=== PATIENT | female | born 1965 | race Caucasian/White ===

== ENCOUNTER 2017-04-18 14:31 | Emergency (ER) | payer MEDICARE, OTHER ==
[2017-04-18 14:48] VITALS: BP 126/78
--- NOTE | 2017-04-18 15:21 | ERNOTE ---
Back Pain ER HPI Time Seen by Provider: 04/18/17 15:13 Source: patient Exam Limitations: no limitations Immunizations: IMMUNIZATION HX Immunizations Up to Date Yes History of Influenza Vaccine Yes Hx Pneumococcal Vaccination Yes Allergies/Adverse Reactions: Allergies oxycodone Adverse Reaction (Severe, Verified 04/18/17 14:49) Nausea tramadol Adverse Reaction (Severe, Verified 04/18/17 14:49) Nausea Home Medications: HOME MEDICATIONS Dextroamphetamine/Amphetamine [Adderall Xr 30 mg Capsule] 30 mg PO DAILY [Last Taken 02/19/16] HYDROcodone/ACETAMINOPHEN [[place] 5-325] 1 tab PO Q4H PRN #20 tab 03/21/16 [Last Taken Unknown] Pilocarpine HCl [Sal[place]] 5 mg PO DAILY 03/21/16 [Last Taken Unknown] Naproxen [Naprosyn] 500 mg PO BID PRN #20 tablet 04/18/17 [Last Taken Unknown] Narrative: Patient presents to the emergency room for mid back pain which began after she helped her friend move several heavy objects yesterday. This patient does have a history of back pain in the past for which she gets [place] was from Dr. Becker. He denies any fevers or chills or dysuria and the pain has been constant all day. Review of Systems - Review of Systems Constitutional: Present: no symptoms reported EYE: Present: no symptoms reported ENT: Present: no symptoms reported Respiratory: Present: no symptoms reported Cardiology: Present: no symptoms reported Gastrointestinal/Abdominal: Present: no symptoms reported Musculoskeletal: Present: other - patient has significant amount of muscle spasm in the lumbar region bilaterally in the paravertebral muscle groups. There are no shingles lesions or any other kind of deformity or redness or signs of infection in the corresponding region. Although walks she is able to sit and bend at the torso however she does have severe pain right just touch her back. - Patient's Past Medical History Patient History - Medical: No pertinent hx, ADHD Patient History - Cardiac/Respiratory: No pertinent hx Patient History - Cancer: Throat, Chemotherapy history, Radiation Therapy Patient History - Surgical Procedures: Appendectomy, Tubal Ligation Patient History - Other: None LMP (females 10-50): year ago - Family History Mother Family History - Medical: No pertinent hx Father Family History - Medical: No pertinent hx - Social History Living Situations: home Abuse History: No History of abuse Psych History: No pertinent hx Smoking Status: Never smoker Alcohol Use: none Drug Use: none - Immunizations Immunizations Up to Date: Yes Hx Pneumococcal Vaccination: Yes History of Influenza Vaccine: Yes Physical Exam - Physical Exam General Appearance: Present: wd/wn, alert, no apparent distress Ears, Nose, Throat: Present: normal ENT inspection Neck: Present: normal inspection, nontender Respiratory: Present: no respiratory distress, normal breath sounds, no accessory muscle use, chest nontender, lungs clear Cardiovascular/Chest: Present: regular rate, rhythm, no murmur, normal peripheral pulses Back Exam: Present: normal inspection, other - patient has severe tenderness upon palpation of the paravertebral muscle groups bilaterally in the thoracic and lumbar region of the spine no vesicular lesions or redness noted does appear to have an exaggerated lordotic spine Extremity Exam: Present: normal inspection Neurological Exam: Present: alert, oriented ED Progress - Vital Signs Patient's Vital Signs:: I have reviewed the patient's vital signs. Vital Signs: Vital Signs 04/18/17 14:43 Temperature 37.2 C Pulse Rate 87 Respiratory 20 Rate Blood Pressure 126/78 O2 Sat by Pulse 98 Oximetry - Progress/Reassessment Chief Complaint: Back Pain Plan - Plan Plan: Patient appears to have muscle spasm of the thoracic and lumbar spine after having helped a friend move yesterday. She will be treated with Naprosyn 500 mg twice a day when necessary pain Departure Clinical Impression: Muscle spasm - Departure Disposition: Home self-care Condition: Good Instructions: Mid-Back Strain With Rehab[facility] Referrals: Dania Becker MD [Primary Care Provider] - Prescriptions: Naproxen [Naprosyn] 500 mg PO BID PRN #20 tablet PRN Reason: Pain
== END 2017-04-18 15:27 | disposition home or self-care (01) ==
LOC: ER 14:31
DX: M62.830 Muscle spasm of back (principal); Z85.819 Personal history of malignant neoplasm of unspecified site of lip, oral cavity, and pharynx; Z92.21 Personal history of antineoplastic chemotherapy; Z92.3 Personal history of irradiation; F90.9 Attention-deficit hyperactivity disorder, unspecified type; X50.0XXA Overexertion from strenuous movement or load, initial encounter

== ENCOUNTER 2019-07-15 12:53 | Observation (INO) ==
--- NOTE | 2019-07-15 13:15 | ERNOTE ---
Back Pain ER HPI Date of Service: 07/15/19 Time Seen by Provider: 07/15/19 13:20 Source: patient Exam Limitations: no limitations Immunizations: IMMUNIZATION HX Immunizations Up to Date Yes History of Influenza Vaccine No Hx Pneumococcal Vaccination No Allergies/Adverse Reactions: Allergies tramadol Adverse Reaction (Mild, Verified 07/15/19 13:04) Nausea Home Medications: HOME MEDICATIONS esomeprazole magnesium 40 mg capsule,delayed release 40 mg PO DAILY #90 cap 01/15/19 [Last Taken Unknown] mupirocin 2 % topical cream 1 applic TP TID #15 g 02/15/19 [Last Taken Unknown] Mupirocin [Bactroban] 1 appl TOPICAL BID #1 tube 06/18/19 [Last Taken Unknown] Sulfamethoxazole/Trimethoprim [Bactrim Ds] 1 tab PO BID #20 tab 06/19/19 [Last Taken Unknown] dextroamphetamine-amphetamine 15 mg tablet 15 mg PO BID #60 tab 06/25/19 [Last Taken Unknown] Narrative: Patient is a 53 years old that works at [employer] at night and on night she was lifting a box of [id number] and heard a sound into her left side with stabbing pain, which moves side shortly after. Pain has been present since and had continued to worsen. Patient reports pain in both side, worsened with movement, and not helped by NSAID. Patient reports taking ibuprofen 6 times since Monday morning, and she reports taking 1 to 2 tablets eachtime. Patient reports dysuria, and increase frequency. she denies fever and mid-line pain. Timing: Reports: constant Quality/Severity: Reports: moderate Location of pain: Reports: mid back, lower back Activities at Onset: Reports: other - at work lifting a box Recent Injury?: Reports: no Possible Precipitating Factor: Reports: lifting, none - UTI Modifying Factors - (Improves): Reports: nothing Modifying Factors - (Worsens): Reports: movement to right, movement to left, movement flexion Associated Symptoms: Reports: problems urinating - dysuria and increase frequency Review of Systems - Review of Systems Constitutional: Present: no symptoms reported EYE: Present: no symptoms reported ENT: Present: no symptoms reported, other - chronic dysarthria Respiratory: Present: no symptoms reported, other - pain on left side with deep breath Cardiology: Present: no symptoms reported Gastrointestinal/Abdominal: Present: no symptoms reported Genitourinary: Present: frequency, dysuria Musculoskeletal: Present: back pain - bilateral back pain at level of CVA, other - CVA tenderness worse on the right Skin: Present: no symptoms reported Neurological: Present: no symptoms reported Endocrine: Present: no symptoms reported Hematologic/Lymphatic: Present: no symptoms reported Psych: Present: no symptoms reported All Other Systems: All systems neg except as marked Medical History (Updated 07/15/19 @ 20:14 by Jennifer Hogan MD) Attention deficit disorder Onset Date: ~2012 History of MRSA infection Onset Date: ~2012 left axillary History of squamous cell carcinoma Onset Date: Unknown left side of neck/underwent chemo and radiation Surgical History: Surgical History (Updated 06/21/18 @ 16:09 by Carrie Willard CMA) History of incision and drainage Onset Date: ~2012 left axillary abscess History of left oophorectomy Onset Date: ~2003 History of tubal ligation Onset Date: ~2003 Hx of appendectomy Onset Date: Unknown Family History: Family History (Updated 06/21/18 @ 16:10 by Carrie Willard CMA) Father Alive and well Mother Alive and well Social History: (Last Reviewed 07/15/19 @ 13:03 by Carola Mckinney RN) Social History: Marital status: number of children: 1 Service: No Tobacco: Smoking Status: Never smoker Alcohol: alcohol intake: current alcohol intake frequency: a few times a month Substance Use: substance use type: former substance user, IV drugs Dietary Habits: caffeine: No Physical Exam - Physical Exam General Appearance: Present: wd/wn, moderate distress Head Exam: Present: normal inspection Eye Exam: Normal inspection: bilateral, PERRL: bilateral Ears, Nose, Throat: Present: normal ENT inspection Neck: Present: normal inspection Respiratory: Present: no respiratory distress, normal breath sounds, decreased breath sounds - left lower lobe Cardiovascular/Chest: Present: regular rate, rhythm Gastrointestinal/Abdominal: Present: normal bowel sounds Back Exam: Present: CVA tenderness (R), CVA tenderness (L). Absent: vertebral tenderness Extremity Exam: Present: normal inspection, non-tender, normal range of motion, no edema Neurological Exam: Present: alert, oriented, normal mood/affect, no motor/sensory deficits Skin Exam: Present: normal color Lymphatic Exam: Present: no adenopathy Progress - Results and Orders Patient's Lab Results:: I have reviewed the patient's lab results. - Vital Signs Patient's Vital Signs:: I have reviewed the patient's vital signs. Vital Signs: Vital Signs 07/15/19 12:59 Temperature 36.3 C Pulse Rate 95 Respiratory Rate 18 Blood Pressure 117/85 O2 Sat by Pulse Oximetry 100 - CT/Ultrasound CT/Ultrasound Narrative: X-RAY REPORT ~[id number] CT/CT Abdomen/Pelvis W/O~ Exam Date: 07/15/2019 14:23 Ordering Physician: Jennifer Hogan MD HISTORY: stone protocol . Additional history from technologist: right flank pain started 2 days ago, left side pain started yesterday TECHNIQUE: Multiple noncontrast axial CT images of the abdomen and pelvis obtained from the top of the diaphragm to the level of the pubic symphysis according to our renal stone CT protocol. Coronal reconstructions were also submitted. Dose reduction techniques using the adjustment of the mA and/or kV according to patient size and/or use of AEC or iterative reconstruction were used in the acquisition of this exam. COMPARISON: Patient has no previous abdominal CT available for comparisons. Chest CT from 11/01/2011 available for comparisons of the lower chest/upper abdomen. FINDINGS: CT Abdomen/Pelvis W/O ABDOMEN: Right kidney: No obvious mass. No discrete intrarenal calcification is identified although there is signs of medullary nephrocalcinosis. No hydronephrosis. No significant perinephric stranding. No evidence for ureteral stone or dilation. Left kidney: No obvious mass. Likewise, no discrete intrarenal calcification is identified although there is signs of medullary nephrocalcinosis. No hydronephrosis. No significant perinephric stranding. No evidence for ureteral stone or dilation. Lung bases: There is a peripheral consolidation in the inferior segment of the lingula, partially visualized on these images. Liver: Series 3 image 17 demonstrates a well-defined low-density lesion, measuring up to 1.4 cm in greatest dimension. On the previous chest CT, the patient had a similar finding although smaller. This is probably a small peripheral hepatic cyst and benign cysts can grow over time but consider ultrasound evaluation to be more definitive which can be performed on a routine basis. Gallbladder: Unremarkable. Pancreas: Unremarkable. Spleen: Unremarkable. Adrenal glands: Unremarkable. Aorta: The aorta is normal in caliber with no evidence for aneurysm. Largest transaxial diameter of the infrarenal segment is 1.7 cm. Retroperitoneum: Unremarkable. Stomach: Unremarkable. Small bowel: Unremarkable. Large bowel: Diverticular outpouchings of the colon noted, predominantly affecting the descending and sigmoid colonic segments, without definite signs of acute inflammation or bowel wall edema/thickening. There is stool retention within the more proximal segments of the colon especially at the cecum/ascending colon suggestive of potential constipation. Appendix is surgically absent. Abdominal wall: There is a small fat-containing umbilical hernia without evidence for bowel herniation. No definable intraperitoneal free air noted. PELVIS: Bladder: No bladder calcifications or abnormal air. No free fluid or fluid collection. No pelvic mass or lymphadenopathy. Patient has bilateral tubal ligation clips. Bones: Appears intact. Multilevel degenerative changes of the thoracolumbar spine noted. IMPRESSION: * Bilateral medullary nephrocalcinosis noted. Differential diagnosis includes hypercalcemic states such as hyperparathyroidism, versus medullary sponge kidney versus renal tubular acidosis. Clinical correlation is advised. * There is no evidence for obstructive uropathy or definable intrarenal or uret eral calcification. * There is a partially visualized pulmonary opacity at the inferior segment of the lingula, which could represent pneumonia versus malignancy. Clinical correlation is advised. Consider additional imaging of the chest (e.g. chest CT with contrast, PET/CT, which can be performed nonemergently). Recommend follow- up imaging (chest CT in 3 months) to document resolution as potential malignancy cannot be entirely excluded. * Slightly enlarged low-density lesion of the liver as discussed above. This is most likely a benign cyst but consider nonemergent liver ultrasound. * Additional comments are as above. The examination is overall suboptimal due to noncontrast CT technique, specifically in regards to neoplastic or vascular processes. Potential parenchymal tumor, or acute vascular processes such as aortic/arterial dissection or thrombosis of a vascular structure cannot be entirely excluded by noncontrast exam. Electronically signed by Janice Black M.D.. Janice Black MD Dict: 07/15/19 1504 Typed: 07/15/19 1504/ X-RAY REPORT ~[id number] CT/CTA Chest~ Exam Date: 07/15/2019 18:08 Ordering Physician: Jennifer Hogan MD HISTORY: pain in chest and back Additional history from technologist: Patient came in with sharp left flank pain today that radiates up into chest. N/V. History of throat cancer with chemo and radiation. TECHNIQUE: Multiple thin-section contrast-enhanced axial CT images of the chest were obtained after rapid infusion of intravenous contrast material, according to pulmonary angiography protocol. Coronal maximal intensity projection (MIP) images were also submitted for interpretation. Dose reduction techniques using the adjustment of the mA and/or kV according to patient size and/or use of AEC or iterative reconstruction were used in the acquisition of this exam. COMPARISONS: Patient has a prior contrast-enhanced chest CT from 11/01/2011. FINDINGS: CTA Chest: Pulmonary Arteries: Diagnostic Quality (for pulmonary arteries): Opacification of the pulmonary arterial branches is adequate. The breath hold is adequate. There is streak artifact from contrast material within the superior vena cava, which affects the adjacent pulmonary arteries. Series 6 image 53 demonstrates a nonocclusive central filling defect within the left lower lobe common basal segmental branch of the pulmonary artery suggestive of a nonocclusive acute PE. No large central saddle embolus. No definite axial CT image findings of right heart strain. Aorta: Opacification of the thoracic aorta is suboptimal for angiographic evaluation but no definite focal finding is seen. Multiple artifacts related to cardiac motion and streak artifact from contrast in the adjacent superior vena cava noted. Mediastinum: No mediastinal mass or lymphadenopathy noted. Calcified mediastinal lymph nodes noted. Heart: No significant pericardial effusion noted. Lung Parenchyma: Series 8 image 87 and series 10 image 31 best demonstrates a peripheral consolidation of the inferior segment of the lingula measuring up to 2.4 x 1.5 cm in the axial images, measuring up to 3.7 cm in length. Patient has biapical fibrotic changes which could be related to prior radiation treatment given a fairly delineated appearance of the pattern of involvement, involving specifically the medial aspect of the lung apices. Central Airways: The trachea and bronchi grossly patent. Pleural Spaces: No pneumothorax or pleural effusions present. Bones: Bones are grossly intact. Chest Wall/Axillae: Anterior chest wall is grossly unremarkable. Axillary regions are also grossly normal. Upper Abdomen: Please see the recent CT examination the abdomen and pelvis report for additional details. IMPRESSION: 1. Positive for acute pulmonary thromboembolism. Nonocclusive filling defect/PE in the left lower lobe common basal segmental branch. 2. Suboptimal opacification of the thoracic aorta for angiographic evaluation without obvious acute findings. 3. Peripheral consolidation of the inferior segment of the lingula. In the setting of PE, this could represent pulmonary hemorrhage versus pulmonary infarct. Other considerations also include pneumonia. Neoplasm should also be considered. Recommend follow-up chest CT in 3 months. PET/CT can also be considered given clinical history of known throat cancer. 4. Additional comments are as above. Above critical result (PULMONARY EMBOLISM) communicated to Jennifer Hogan MD via telephone on 07/15/2019 7:54 PM. Electronically signed by Janice Black M.D.. Janice Black MD Dict: 07/15/191941 Typed: 07/15/191941/ - Progress/Reassessment Chief Complaint: Back Pain Plan - Plan Plan: Patient with bilateral severe back pain since last , dysuria, increased frequency. CT abdomen and pelvis without contrast for stone protocol revealed bilateral nephrocalcinosis which does not explain her bilateral severe pain. Patient found to have a UTI and given a dose of ceftriaxone IV. Patient pain is intractable and required hydromorphone to control it, she also of nausea and vomiting requiring IV medication. Due to her continuous pain I ordered a CT chest, which revealed a left lower lobe pulmonary emboli, with peripheral consolidation of the inferior segment of the lingula, iIn the setting of PE,with represent pulmonary hemorrhage versus pulmonary infarct versus pneumonia. Patient was given a milligram per kilogram of Lovenox, 5 mg of Coumadin. Overall, 500 mg of azithromycin peripheral. Case was discussed with Dr. Umanzor who accepted admission to [facility] as inpatient for pulmonary emboli, UTI, pneumonia, nausea and vomiting, and intractable pain. Departure Clinical Impression: UTI (urinary tract infection), Pulmonary emboli, Pneumonia, Nausea & vomiting, Intractable pain - Departure Disposition: Still a patient Condition: Serious Referrals: Dania Becker MD [Primary Care Provider] -
[2019-07-15] MEDS ORDERED: KETOROLAC TROMETHAMINE 30 MG/ML VIAL IM ONE (13:41)
[2019-07-15 13:58] LABS: Urine Bilirubin Negative (NEGATIVE); Urine Blood Negative /ul (NEGATIVE); Urine Ketone Negative (NEGATIVE); Urine Nitrite Negative (NEGATIVE); Urine Protein Negative (NEGATIVE); Urine Specific Gravity 1.025 SP.GR. (1.005-1.010); Urine Urobilinogen Normal (NORMAL); Urine pH 5.5 pH (5.0-7.0)
[2019-07-15 14:09] LABS: Urine Appearance Slightly Cloudy (CLEAR); Urine Bacteria 1+; Urine Color Yellow; Urine RBC 0-5 /hpf (0-5)
[2019-07-15] MEDS ORDERED: NORMAL SALINE 1,000 ML IV PRN (14:18)
[2019-07-15] MEDS ORDERED: MORPHINE SULFATE 4 MG/ML SYRG IV ONE (14:18)
[2019-07-15 14:42] LABS: Hematocrit 33.4 % (37.0-47.0); Hemoglobin 10.7 gm/dL (12.5-16.0); Mean Cell Volume 84.6 fl (78-100); Mean Corpuscular Hemoglobin 27.1 pg (27-31); Mean Platelet Volume 8.4 fl (8-12.5); Neutrophil # 4.4 K/mm3 (1.3-6.0); Neutrophil % 68.8 % (42-75.0); Platelet Count 300 K/mm3 (150-450); Red Blood Count 3.95 M/mm3 (4.2-5.4); Red Cell Distribution Width 13.2 % (11.5-14.0); White Blood Count 6.4 K/mm3 (4.0-10.5)
[2019-07-15 14:54] LABS: Albumin * 3.1 gm/dl (3.4-5.0); Anion Gap 10.7 mmol/L (6.8-13.8); BUN/Creatinine Ratio 11.8 (9.0-21.6); Bilirubin, Total 0.2 mg/dL (0.0-1.1); Ca. Corrected For Albumin 9.6 mg/dL (8.4-10.2); Calcium * 9.2 mg/dL (7.9-10.9); Carbon Dioxide 29.4 mmol/L (24-32.6); Potassium 4.1 mmol/L (3.4-4.6); Total Protein 7.5 gm/dL (6.2-8.2)
[2019-07-15] MEDS ORDERED: HYDROmorphone HCL 1 MG/ML DISP.SYRIN IV ONE ×2 (14:56→18:14)
[2019-07-15] MEDS ORDERED: ONDANSETRON HCL/PF 2 MG/ML VIAL IV ONE (18:14)
[2019-07-15] MEDS ORDERED: cefTRIAXone SODIUM 1,000 MG/100 ML BAG IV ONE (18:16)
[2019-07-15] MEDS ORDERED: PROCHLORPERAZINE EDISYLATE 5 MG/ML VIAL IV ONE (19:07)
[2019-07-15] MEDS ORDERED: PROCHLORPERAZINE EDISYLATE 5 MG/ML VIAL ONE (19:08)
[2019-07-15] MEDS ORDERED: ENOXAPARIN SODIUM 30 MG/0.3 ML SYRG SC ONE (20:07)
[2019-07-15] MEDS ORDERED: AZITHROMYCIN 250 MG TABLET PO ONE (20:10)
[2019-07-15] MEDS ORDERED: WARFARIN SODIUM 5 MG TABLET PO ONE (20:24)
[2019-07-15 20:57] LABS: Prothrombin Time (Patient) 10.1 Seconds (9.1-10.7)
[2019-07-15 20:58] LABS: INR 1.02 INR (0.92-1.08); Partial Thrombolplastin Time 28.2 Seconds (24-32)
[2019-07-15] MEDS ORDERED: WARFARIN SODIUM 5 MG TABLET ONE (21:33)
[2019-07-15] MEDS ORDERED: AZITHROMYCIN 250 MG TABLET ONE (21:33)
[2019-07-15] MEDS ORDERED: ENOXAPARIN SODIUM 100 MG/ML SYRG SC ONE (21:33)
[2019-07-15] MEDS ORDERED: AZITHROMYCIN 500 MG in DEXTROSE 5 % IN WATER 250 ML IV ONE ×2 (22:20)
[2019-07-15] MEDS ORDERED: oxyCODONE HCL/ACETAMINOPHEN 1 TAB TABLET PO PRN (23:52)
[2019-07-15] MEDS ORDERED: ONDANSETRON HCL/PF 2 MG/ML VIAL IV PRN (23:54)
[2019-07-16] MEDS ORDERED: PANTOPRAZOLE SODIUM 40 MG TABLET.EC PO SCH (07:00)
[2019-07-16] MEDS ORDERED: ENOXAPARIN SODIUM 60 MG/0.6 ML SYRG SC SCH (08:00)
--- NOTE | 2019-07-16 08:22 | HPDIS ---
Chief Complaint - Chief Complaint Date of Service: 07/16/19 Time of Service: 08:22 Chief Complaint: Side pain, shortness of breath, nausea/vomiting History of Present Illness: Faye is a 53 yo female with history of throat cancer reportedly in remission. She was working at [employer] when she had sudden stabbing left side chest and flank pain. Pain continued in severity that it caused nausea and vomiting. She felt short of breath. She was seen in the [facility] ER and evaluated with Abdomen CT which showed possible pnuemonia in lung. Chest CT was performed which showed pulmonary embolism and possible hemorrhage vs infarct in the left lingula. She denies prior blood clot, smoking, decreased mobility, family history of blood clots, or recent travel. She does have history of throat cancer in remission. She was having severe pain and nausea but pain has now resolved and she is feeling better. Medical History (Updated 07/16/19 @ 08:22 by Julio Umanzor DO) Attention deficit disorder Onset Date: ~2012 History of MRSA infection Onset Date: ~2012 left axillary History of squamous cell carcinoma Onset Date: Unknown left side of neck/underwent chemo and radiation Surgical History: Surgical History (Updated 07/16/19 @ 08:22 by Julio Umanzor DO) History of incision and drainage Onset Date: ~2012 left axillary abscess History of left oophorectomy Onset Date: ~2003 History of tubal ligation Onset Date: ~2003 Hx of appendectomy Onset Date: Unknown Family History: Family History (Updated 06/21/18 @ 16:10 by Carrie Willard CMA) Father Alive and well Mother Alive and well Social History: (Last Reviewed 07/15/19 @ 21:23 by Carl Rojas RN) Social History: Marital status: number of children: 1 Service: No Tobacco: Smoking Status: Never smoker Alcohol: alcohol intake: current alcohol intake frequency: a few times a month Substance Use: substance use type: former substance user, IV drugs Dietary Habits: caffeine: No Review Of Systems (GEN) - Review of Systems Generalized/Overall Review: Absent: Weakness, Chills, Fever Respiratory: Present: Shortness of Breath. Absent: Cough Cardiac: Present: Chest Pain. Absent: Palpitations, Syncope Abdominal: Present: Nausea, Vomiting. Absent: Abdominal Pain Genitourinary: Present: No Symptoms Reported Neurological: Present: No Symptoms Reported Skin: Present: No Symptoms Reported Immunizations: IMMUNIZATION HX Immunizations Up to Date Yes History of Influenza Vaccine No Hx Pneumococcal Vaccination No Allergies/Adverse Reactions: Allergies Allergy/AdvReac Type Severity Reaction Status Date / Time tramadol AdvReac Mild Nausea Verified 07/15/19 21:23 Home Medications: HOME MEDICATIONS esomeprazole magnesium 40 mg capsule,delayed release 40 mg PO DAILY #90 cap 01/15/19 [Last Taken Unknown] dextroamphetamine-amphetamine 15 mg tablet 15 mg PO BID #60 tab 06/25/19 [Last Taken Unknown] Apixaban [Eliquis] 5 mg PO BID #60 tab 07/16/19 [Last Taken Unknown] Apixaban [Eliquis] 10 mg PO BID #28 tab 07/16/19 [Last Taken Unknown] HYDROcodone/ACETAMINOPHEN [Hydrocodon-Acetaminophen 5-325] 1 each PO Q6H PRN #60 tablet 07/16/19 [Last Taken Unknown] Exam - Exam Vital Signs: Vital Signs - Last Taken Temp 36.8 C 07/16/19 07:29 Pulse 74 07/16/19 07:29 Resp 12 07/16/19 07:29 BP 110/77 07/16/19 07:29 Pulse Ox 97 07/16/19 07:29 Constitutional: Present: Alert, Oriented x3, Cooperative ENT Exam: Present: hearing grossly normal Eye Exam: bilateral eye: normal inspection Respiratory: Present: lungs clear, normal breath sounds Cardiovascular/Chest: Present: no murmur, tachycardia Peripheral Pulses: radial (R): 2+, radial (L): 2+ Abdomen: Present: Normal bowel sounds, soft, nontender, nondistended Skin Exam: Present: normal color, warm/dry, no cyanosis Diagnostic Studies: Abnormal Lab Results 07/15/19 07/15/19 07/15/19 Range/Units 13:46 14:34 14:34 RBC 3.95 L (4.2-5.4) M/mm3 Hgb 10.7 L (12.5-16.0) gm/dL Hct 33.4 L (37.0-47.0) % Lymphocytes % 18.6 L (20-51) % Eosinophils % 3.8 H (0.0-3.0) % Lymphocytes # 1.18 L (1.5-3.5) k/mm3 ALT 13 L (19-67) U/L Albumin 3.1 L (3.4-5.0) gm/dl Ur Leukocyte Esterase 500 H (NEGATIVE) /ul Urine WBC 10-25 H (0-5) /hpf Ur Epithelial Cells >25 H (0-5) /hpf Urine Bacteria 1+ H (NONE) Microbiology 07/15/19 13:46 Urine Culture - Preliminary Urine,Clean Catch No Growth Laboratory Results WBC 6.4 K/mm3 (4.0-10.5) 07/15/19 14:34 RBC 3.95 M/mm3 (4.2-5.4) L 07/15/19 14:34 Hgb 10.7 gm/dL (12.5-16.0) L 07/15/19 14:34 Hct 33.4 % (37.0-47.0) L 07/15/19 14:34 MCV 84.6 fl (78-100) 07/15/19 14:34 MCH 27.1 pg (27-31) 07/15/19 14:34 MCHC 32.0 g/dl (32-36) 07/15/19 14:34 RDW 13.2 % (11.5-14.0) 07/15/19 14:34 Plt Count 300 K/mm3 (150-450) 07/15/19 14:34 MPV 8.4 fl (8-12.5) 07/15/19 14:34 Immature Gran % (Auto) 0.30 % (0.001-0.429) 07/15/19 14:34 Immature Gran # (Auto) 0.02 K/mm3 (0.000-0.0310) 07/15/19 14:34 68.8 % (42-75.0) 07/15/19 14:34 18.6 % (20-51) L 07/15/19 14:34 8.3 % (0.0-9) 07/15/19 14:34 3.8 % (0.0-3.0) H 07/15/19 14:34 0.2 % (0.0-1.0) 07/15/19 14:34 Nucleated RBC % 0.0 k/mm3 (0-1) 07/15/19 14:34 4.4 K/mm3 (1.3-6.0) 07/15/19 14:34 1.18 k/mm3 (1.5-3.5) L 07/15/19 14:34 0.5 k/mm3 (0.0-1.0) 07/15/19 14:34 0.2 k/mm3 (0.0-0.7) 07/15/19 14:34 Absolute Basophils 0.0 k/mm3 (0.0-0.1) 07/15/19 14:34 PT 10.1 Seconds (9.1-10.7) 07/15/19 20:45 INR (Anticoag Therapy) 1.02 INR (0.92-1.08) 07/15/19 20:45 PTT ([place]) 28.2 Seconds (24-32) 07/15/19 20:45 Sodium 140 mmol/L (132-142) 07/15/19 14:34 140 mmol/L (130-142) 07/15/19 14:34 Potassium 4.1 mmol/L (3.4-4.6) 07/15/19 14:34 Chloride 104 mmol/L (97-106) 07/15/19 14:34 Carbon Dioxide 29.4 mmol/L (24-32.6) 07/15/19 14:34 10.7 mmol/L (6.8-13.8) 07/15/19 14:34 BUN 8 mg/dL (3-23) D 07/15/19 14:34 0.68 mg/dL (0.4-1.4) 07/15/19 14:34 Est GFR (Non-Af Amer) 97 mL/min (60-130) 07/15/19 14:34 11.8 (9.0-21.6) 07/15/19 14:34 90 mg/dL (70-110) 07/15/19 14:34 1.0 mmol/L (0.4-2.0) 07/15/19 14:34 Calcium 9.2 mg/dL (7.9-10.9) 07/15/19 14:34 Calcium Adj for Albumin 9.6 mg/dL (8.4-10.2) 07/15/19 14:34 0.2 mg/dL (0.0-1.1) 07/15/19 14:34 AST 14 U/L (0-48) 07/15/19 14:34 ALT 13 U/L (19-67) L 07/15/19 14:34 100 U/L (50-170) 07/15/19 14:34 7.5 gm/dL (6.2-8.2) 07/15/19 14:34 3.1 gm/dl (3.4-5.0) L 07/15/19 14:34 Yellow 07/15/19 13:46 Slightly cloudy (CLEAR) 07/15/19 13:46 5.5 pH (5.0-7.0) 07/15/19 13:46 Ur Specific [place] 1.025 SP.GR. (1.005-1.010) 07/15/19 13:46 Negative mg/dL (NEGATIVE) 07/15/19 13:46 Negative mg/dL (NEGATIVE) 07/15/19 13:46 Negative mg/dL (NEGATIVE) 07/15/19 13:46 Negative /ul (NEGATIVE) 07/15/19 13:46 Negative (NEGATIVE) 07/15/19 13:46 Negative mg/dl (NEGATIVE) 07/15/19 13:46 Normal EU/dl (NORMAL) 07/15/19 13:46 Ur Leukocyte Esterase 500 /ul (NEGATIVE) H 07/15/19 13:46 0-5 /hpf (0-5) 07/15/19 13:46 10-25 /hpf (0-5) H 07/15/19 13:46 Ur Epithelial Cells >25 /hpf (0-5) H 07/15/19 13:46 1+ (NONE) H 07/15/19 13:46 Culture to follow 07/15/19 13:46 Assessment/Plan - Narrative Narrative: Faye is a 53 yo female with pulmonary embolism in the left lower lobe common basal segmental branch. CT also suggest possible hemorrhage vs infarct. In the ER patient had severe pain and intractable nausea and vomiting due to the pain but this has since resolved overnight. This is a first time episode of VTE and will need 6 months of treatment. She has been medically stable overnight and does not require oxygen. She will be discharged to home. She was started on Lovenox but after discussing with Faye she does not want to do monthly blood draws as she is scared of needles. She elects for eliquis. Will start this treatment as outpatient. - Assessment/Plan (1) Pulmonary emboli Problem: Acute Qualifiers: Pulmonary embolism type: other Chronicity: acute Acute cor pulmonale presence: without acute cor pulmonale Qualified Code(s): I26.99 - Other pulmonary embolism without acute cor pulmonale (2) Nausea & vomiting Problem: Acute Qualifiers: Vomiting type: unspecified (1) Pulmonary emboli Problem: Acute (2) Nausea & vomiting Problem: Acute Date of Discharge:: 07/16/19 Description of Stay: Faye was admitted for pulmonary embolism in observation due to severe pain and intractable nausea and vomiting. These have resolved overnight. She has not required oxygen and vitals are normal. She was started on weight based lovenox 1mg/kg BID. I discussed anticoagulation with her and she elects for eliquis. I recommend treating for 6 months and then considering stopping vs life long therapy. Her only risk factor for VTE is her history of throat cancer. She will be treated with Eliquis 10mg BID x 7 days, then 5mg BID for 6 months. She was initially given antibiotics in the ER for potential pneumonia. I believe her chest findings on imaging are related to her pulmonary embolism as hemorrhage vs infarct. She has no symptoms of pneumonia as she has been afebrile, no leukocytosis, and no cough. I will not continue any antibiotics. She will follow up with her primary care physician, Dr. Becker in one week. Procedures Performed: none Results and Findings: Pending Mircobiology Results 07/15/19 13:46 Urine,Clean Catch Urine Culture - Preliminary No Growth Lab Pending Results 07/15/19 13:46: Urine Color Yellow, Urine Appearance Slightly cloudy, Urine pH 5.5, Ur Specific [place] 1.025, Urine Protein Negative, Urine Glucose (UA) Negative, Urine Ketones Negative, Urine Blood Negative, Urine Nitrate Negative, Urine Bilirubin Negative, Urine Urobilinogen Normal, Ur Leukocyte Esterase 500 H, Urine RBC 0-5, Urine WBC 10-25 H, Ur Epithelial Cells >25 H, Urine Bacteria 1+ H, Urine Culture Comments Culture to follow 07/15/19 14:34: WBC 6.4, RBC 3.95 L, Hgb 10.7 L, Hct 33.4 L, MCV 84.6, MCH 27.1, MCHC 32.0, RDW 13.2, Plt Count 300, MPV 8.4, Immature Gran % (Auto) 0.30, Immature Gran # (Auto) 0.02, Neutrophils % 68.8, Lymphocytes % 18.6 L, Monocytes % 8.3, Eosinophils % 3.8 H, Basophils % 0.2, Nucleated RBC % 0.0, Neutrophils # 4.4, Lymphocytes # 1.18 L, Monocytes # 0.5, Eosinophils # 0.2, Absolute Basophils 0.0 07/15/19 14:34: Sodium 140, Plasma Sodium 140, Potassium 4.1, Chloride 104, Carbon Dioxide 29.4, Anion Gap 10.7, BUN 8 D, Creatinine 0.68, Est GFR (Non-Af Amer) 97, BUN/Creatinine Ratio 11.8, Random Glucose 90, Calcium 9.2, Calcium Adj for Albumin 9.6, Total Bilirubin 0.2, AST 14, ALT 13 L, Alkaline Phosphatase 100, Total Protein 7.5, Albumin 3.1 L 07/15/19 14:34: Lactic Acid, Venous 1.0 07/15/19 20:45: PT 10.1, INR (Anticoag Therapy) 1.02, PTT ([place]) 28.2 Discharge Location: Home Disposition: Home self-care Condition: Good Discharge Activity: Activity as tolerated Discharge Diet: General/regular food Referrals: Dania Becker MD [Primary Care Provider] - One Week Problem Oriented Discharge Instructions to Patient/Family: Pulmonary Embolism Prescriptions (Any new or edited meds): Apixaban [Eliquis] 10 mg PO BID #28 tab Apixaban [Eliquis] 5 mg PO BID #60 tab HYDROcodone/ACETAMINOPHEN [Hydrocodon-Acetaminophen 5-325] 1 each PO Q6H PRN #60 tablet PRN Reason: moderate pain Complete Home Medications List: Complete Home Medication List: esomeprazole magnesium 40 mg capsule,delayed release 40 mg PO DAILY #90 cap 01/15/19 dextroamphetamine-amphetamine 15 mg tablet 15 mg PO BID #60 tab 06/25/19 Apixaban [Eliquis] 5 mg PO BID #60 tab 07/16/19 Apixaban [Eliquis] 10 mg PO BID #28 tab 07/16/19 HYDROcodone/ACETAMINOPHEN [Hydrocodon-Acetaminophen 5-325] 1 each PO Q6H PRN #60 tablet 07/16/19
[2019-07-16 15:31] VITALS: BP 91/56
== END 2019-07-16 15:45 | disposition home or self-care (01) ==
LOC: ER 12:53 → INTOOBSV 20:14 → MS 20:14
PROVIDERS: ADMIT Family Medicine; ATTEND Family Medicine
CPT/HCPCS: 36415; 71275; 74176; 80053; 81001; 83605; 83970; 85025; 85610; 85730; 87040; 87081; 87086; 96365; 96366; 96372; 96375; 99285; G0378; J2405; Q9967